=== PATIENT | male | born 1955 ===

== ENCOUNTER 2019-11-01 07:52 | Day surgery (SDC) | payer OTHER ==
[~2019-11-01] VITALS: Ht 180.3 cm; Wt 84.3 kg
--- NOTE | 2019-11-01 08:34 | NUR ---
11/01/19 0808 DAVID LEBLANC PT HAD ENEMA, RESULT WAS YELLOW AND CLOUDY WITH SEDIMENT
== END 2019-11-01 10:03 | disposition home or self-care (01) ==
LOC: ORSCSDS 07:52
PROVIDERS: Internal Medicine Gastroenterology
PROC: 0DBK8ZX Excision of Ascending Colon, Via Natural or Artificial Opening Endoscopic, Diagnostic (ICD-10-PCS; principal; 2019-11-01 08:45)
DX: Z12.11 Encounter for screening for malignant neoplasm of colon (principal); D12.2 Benign neoplasm of ascending colon; K57.30 Diverticulosis of large intestine without perforation or abscess without bleeding; E11.9 Type 2 diabetes mellitus without complications
CPT/HCPCS: 82947; 88305; J2704; J7120